=== PATIENT | female | born 1980 | race Caucasian/White ===

== ENCOUNTER → 2019-04-18 17:12 | Outpatient (CLI) | payer OTHER, SELFPAY ==
--- NOTE | ~2019-04-18 | MM_ITS ---
EXAMINATION: MM screening sheila BI w mar HISTORY: Screening mammogram TECHNIQUE: Craniocaudal and mediolateral oblique 3-D tomosynthesis images were obtained and synthetic 2-D images were generated. CAD analysis was submitted and interpreted. COMPARISON: No prior mammogram is available for comparison at this institution. BREAST PARENCHYMAL COMPOSITION: The breasts are extremely dense, which lowers the sensitivity of mamm ography. FINDINGS: There is no evidence of suspicious mass, calcification, or architectural distortion to sugg est malignancy in either breast. There has been no suspicious interval change. IMPRESSION: 1. No mammographic evidence of malignancy. 2. Recommend routine screening mammography in one year. BI-RADS Category 1: Negative Reviewed, dictated and finalized at location A. [facility]
== END ==
PROVIDERS: Visit Provider Advanced Practice Midwife
DX: Z12.31 Encounter for screening mammogram for malignant neoplasm of breast (principal)
CPT/HCPCS: 77063; 77067

== ENCOUNTER 2019-08-09 21:24 | Emergency (ER) | payer OTHER, MEDICAID, SELFPAY ==
--- NOTE | ~2019-08-09 | CT_ITS ---
EXAMINATION: CT abdomen pelvis wo con DATE: 08/09/2019 22:23 INDICATION: Right lower quadrant abdominal pain and fever TECHNIQUE: Computed tomography (CT) of the abdomen and pelvis was performed without intravenous contr ast. Automated exposure control and iterative reconstruction technique were employed. The dose-length product was 275.91 mGy-cm. COMPARISON: 03/18/2012 FINDINGS: Lung bases are clear. Visualized inferior heart appears normal. No pericardial or pleural effusion. L iver, gallbladder, spleen, pancreas, bilateral adrenal glands and left kidney are normal. 11 mm fluid attenuation cyst in the region of cortical scarring at the right kidney. No abnormal bowel wall thic kening or obstruction. The appendix is not visualized. No pericecal inflammatory change to suggest ac nish appendicitis. Bladder and anteverted uterus are normal. Small cysts/follicles at the bilateral ov arias. Small amount of likely physiologic free fluid in the cul-de-sac. No pathologically enlarged ab dominal or pelvic lymphadenopathy. L5 spondylolysis with bilateral pars interarticularis defects but no spondylolisthesis. IMPRESSION: 1. Small amount of likely physiologic free fluid in the pelvis. No other evident acute intra-abdomina l/pelvic process. 2. Chronic cortical scarring at the right kidney. Reviewed, dictated and finalized at location A. IMPRESSION: 1. Small amount of likely physiologic free fluid in the pelvis. No other eviden t acute intra-abdominal/pelvic process. 2. Chronic cortical scarring at the right kidney.
[2019-08-09 21:33] VITALS: BP 115/72; PULSE 114; RESP 20; TEMP 37.6; O2SAT 100
--- NOTE | 2019-08-09 21:53 | ED.FEVER ---
HPI - Fever General Chief Complaint: Fever Stated Complaint: fever, cramping, painful urination Time Seen by Provider: 08/09/19 21:40 Source: patient Mode of arrival: ambulatory Limitations: no limitations History of Present Illness HPI Narrative: Patient is a 39-year-old female with a history of recurrent urinary tract infections who presents for evaluation of dysuria, hematuria and fever. Patient reports low-grade fever and chills as well as myalgias earlier today. Patient states she believes she has a urinary tract infection as she has had some dysuria and frequency also has noticed some hematuria. No history of nephrolithiasis. Patient states her last urinary tract infection was several months ago. In the past, she typically gets these every 2 to 3 years. Patient also reports a mild headache without thunderclap sensation, vision changes. Patient reports nausea, but no episodes of emesis. She reports right-sided pelvic pain, and denies flank pain. Pain is dull, aching in nature without radiation to the back or upper abdomen. Related Data Allergies Allergy/AdvReac Type Severity Reaction Status Date / Time Penicillins Allergy Mild Rash Verified 08/09/19 22:05 Sulfa (Sulfonamide Allergy Mild Dry Mouth Verified 08/09/19 22:05 Antibiotics) amoxicillin Allergy Unknown Rash Verified 08/09/19 22:05 Review of Systems Review of Systems: Narrative: CONSTITUTIONAL: Reports fever and chills EYES: Denies visual changes, redness, or discharge. ENT: Denies rhinorrhea, congestion, sore throat, or otalgia. CARDIOVASCULAR: Denies chest pain, palpitations, or edema. RESPIRATORY: Denies cough or dyspnea. GASTROINTESTINAL: Reports right-sided abdominal pain, nausea GENITOURINARY: Reports dysuria and hematuria SKIN: Denies rash or itching. MUSCULOSKELETAL: Denies back pain, joint pain, or myalgia. NEUROLOGIC: Reports mild headache,denies numbness, or weakness. [facility] Past Medical History Medical History (Updated 08/09/19 @ 22:41 by Vianey Perry MD) Anxiety Migraine Urinary tract infection Surgical History Surgical History (Updated 08/09/19 @ 21:56 by Vianey Perry MD) History of gastric surgery Social History Social History (Updated 08/09/19 @ 21:56 by Vianey Perry MD) Smoking status: Never smoker Substance use: never Gender identity (if verbalized by the patient): Female Exam Narrative: Exam Narrative: GENERAL: Awake, alert, conversant HEAD: Normocephalic, atraumatic. EYES: PERRLA and EOMI. ENT: Nares clear, no rhinorrhea or epistaxis. Mucous membranes moist. NECK: Supple. CHEST: No respiratory distress, breathing even and non labored HEART: Regular rate, sinus rhythm ABDOMEN:Non distended, mild right lower quadrant tenderness, no rebound or guarding, no CVA tenderness EXTREMITIES: Normal range of motion. No edema. SKIN: Warm, dry, no rash. NEURO:No focal deficits. Alert and oriented x3 Course Vital Signs Vital signs: Vital Signs Temperature 37.6 C H 08/09/19 21:33 Pulse Rate 114 H 08/09/19 21:33 Respiratory Rate 08/09/19 21:33 Blood Pressure 115/72 08/09/19 21:33 Pulse Oximetry 100 08/09/19 21:33 Temperature 37.6 C H 08/09/19 21:33 Pulse Rate 114 H 08/09/19 21:33 Respiratory Rate 20 08/09/19 21:33 Blood Pressure 115/72 08/09/19 21:33 Pulse Oximetry 100 08/09/19 21:33 MDM - Fever MDM Narrative Medical decision making narrative: Patient presented to the emergency department for evaluation of fever, dysuria, hematuria right lower quadrant pain. At the time of assessment, ABCs are intact, vital signs are notable for fever and tachycardia. Given concern for sepsis, IV access obtained and blood cultures were drawn. Patient was given a 30 mL/kg fluid bolus and started on IV Rocephin as this is likely in origin. Patient does not have lactic acidosis. No leukocytosis. She does have a UTI. No evidence of appendicitis or acute intra-abdominal process suc
[2019-08-09] MEDS: ACETAMINOPHEN 500 MG TABLET 1000 MG PO (22:06)
[2019-08-09] MEDS: SODIUM CHLORIDE 0.9% IV 1,000 ML 999 ML IV CONT ×2 (22:06→22:45)
[2019-08-09] MEDS: MORPHINE SULFATE 4 MG/ML INJ 2 MG IV PUSH (22:07)
[2019-08-09] MEDS: ONDANSETRON INJ 4 MG/2 ML VIAL IV PUSH (22:07)
[2019-08-09 22:25] LABS: Basophils Absolute Auto 0.1 K/mm3 (0.0-0.1); Basophils Percent Auto 0.6 % (0.2-1.2); Eosinophils Absolute Auto 0.1 K/mm3 (0-0.3); Eosinophils Percent Auto 0.8 % (0-4.4); Hematocrit 40.2 % (37.0-47.0); Hemoglobin 13.5 g/dL (12.0-15.0); Immature Granulocyte Absolute 0.03 K/mm3 (0.00-0.031); Immature Granulocyte Percent A 0.3 % (0-0.5); Lymphocytes Absolute Auto 0.93 K/mm3 (0.9-3.2); Mean Corpuscular HGB Conc 33.6 g/dl (32-36); Mean Corpuscular Hemoglobin 30.8 pg (26-34); Mean Corpuscular Volume 91.6 fl (80-100); Mean Platelet Volume 11.2 fl (7.4-10.4); Monocytes Absolute Auto 0.8 K/mm3 (0.1-0.6); Monocytes Percent Auto 8.3 % (2.6-8.5); Neutrophils Absolute Auto 7.4 K/mm3 (1.3-6.7); Platelet Count Result 178 k/mm3 (150-375); Red Blood Count 4.39 M/mm3 (4.2-5.4); Red Cell Distribution Width 11.9 % (11.5-14.5); White Blood Count 9.3 K/mm3 (4.5-10.0)
[2019-08-09 22:30] LABS: Add Urine Microscopic? YES; Appearance Urine Cloudy (Clear); Bacteria Urine 1+ /hpf; Bilirubin Urine Negative (Negative); Blood Urine Negative (Negative); Color Urine Yellow (Yellow); Glucose Urine UA Negative (Negative); Ketones Urine Negative (Negative); Leukocyte Esterase Ur 2+ LEU/UL (Negative); Mucus Urine Rare /lpf; Nitrate Urine Negative (Negative); Protein Urine 1+ mg/dL (Negative); Specific Grav Ur 1.013 (1.001-1.035); Squamous Epithelial Cell Urine Rare /hpf (Few); Urobilinogen Urine Negative mg/dL (<2.0); WBC Urine 51-75 /hpf
[2019-08-09 22:40] LABS: Lactic Acid Reflex 0.7 mmol/L (0.7-2.1)
[2019-08-09 22:55] LABS: Blood Urea Nitrogen 11 mg/dL (7-17); Calcium 8.9 mg/dL (8.4-10.2); Carbon Dioxide 32 mmol/L (22-30); Chloride 99 mmol/L (98-107); Estimated CRCL calculation 65 ml/min; Estimated Glomerular Filt Rate > 60; Glucose 107 mg/dL (65-105); Potassium 3.8 mmol/L (3.4-5.0); Sodium 136 mmol/L (137-145)
[2019-08-09 23:40] VITALS: BP 98/53; PULSE 104; RESP 15; O2SAT 96
[2019-08-09 23:41] VITALS: TEMP 37.4
== END 2019-08-09 23:40 | disposition home or self-care (01) ==
PROVIDERS: Emergency Medicine Emergency Medical Services; Emergency Provider Emergency Medicine
DX: N12 Tubulo-interstitial nephritis, not specified as acute or chronic (principal)
CPT/HCPCS: 36415; 74176; 80048; 81001; 81025; 83605; 85025; 87040; 87077; 87086; 87088; 87186; 96361; 96365; 96375; 99284; A9270; J0696; J2270; J2405; J7030

== ENCOUNTER 2019-11-27 01:49 | Emergency (ER) | payer OTHER, MEDICAID, SELFPAY ==
[2019-11-27 01:53] VITALS: BP 114/60; PULSE 74; RESP 18; TEMP 36.2; O2SAT 100
--- NOTE | 2019-11-27 02:27 | ECG_ITS ---
Measurements Intervals [place] Rate: 81 P: 42 NC: 118 QRS: 48 QRSD: 89 T: 40 QT: 383 QTc: 445 Interpretive Statements SINUS RHYTHM WITH SHORT NC INTERVAL INCOMPLETE RIGHT BUNDLE BRANCH BLOCK BORDERLINE ECG Electronically Signed On 11-27-2019 8:09:02 CDT by Garrett Pool D.O.
[2019-11-27 03:07] VITALS: BP 95/64; PULSE 85; RESP 18; O2SAT 99
[2019-11-27] MEDS: ALPRAZolam (*CRX) 0.5 MG TABLET PO (03:07)
--- NOTE | 2019-11-27 03:15 | ED.CHESTPAIN ---
HPI - Chest Pain General Chief Complaint: Chest Pain Stated Complaint: sick to stomach . Time Seen by Provider: 11/27/19 02:10 History of Present Illness HPI narrative: Patient is a 39-year-old female who presents the ER with anxiety. Patient reports she gets anxiety attack about once a week. Tonight it woke her up from sleep and she had central chest pressure and tightness. She reports that lasted longer than typical and she cannot breathe her way through it. She still feeling slightly anxious and like her heart is racing. No radiation of the chest discomfort. No nausea/vomiting/diaphoresis. Patient reports her anxiety is untreated. No new stressors. Related Data Allergies Allergy/AdvReac Type Severity Reaction Status Date / Time Penicillins Allergy Mild Rash Verified 08/14/19 12:58 Sulfa (Sulfonamide Allergy Mild Dry Mouth Verified 08/14/19 12:58 Antibiotics) amoxicillin Allergy Unknown Rash Verified 08/14/19 12:58 Review of Systems Review of Systems: All systems reviewed & are unremarkable except as noted in HPI and below Constitutional: Constitutional: Denies chills, Denies fever(s) and Denies weakness ENT: Denies nasal congestion and Denies sore throat Cardiovascular: Cardiovascular: Reports chest pain, Reports rapid heart rate and Denies radiating jaw, neck or arm pain Respiratory: Respiratory: Denies cough, Reports dyspnea and Denies wheezing Psychiatric: Psychiatric: Reports anxiety and Denies depression PMFSH Past Medical History Medical History (Updated 11/27/19 @ 03:39 by Alvino Quijano MD) Anxiety Migraine Urinary tract infection Surgical History Surgical History (System 08/14/19 @ 12:58 by Sierra Justice) History of gastric surgery Social History Social History (System 08/14/19 @ 12:58 by Sierra Justice) Smoking status: Never smoker Substance use: never Gender identity (if verbalized by the patient): Female Exam Narrative: Exam Narrative: GENERAL: Well-appearing, well-nourished, and in no acute distress. HEAD: Normocephalic, atraumatic. NECK: Supple. CHEST: Clear to auscultation. No respiratory distress. HEART: Regular rate and rhythm. Normal peripheral pulses. ABDOMEN: Soft, nontender, nondistended. EXTREMITIES: Normal range of motion. No edema. NEURO: Alert and oriented x3. PSYCH: Normal mood and affect. Course Course Emergency Course: Sx resolved with xanax. D/c. Vital Signs Vital signs: Vital Signs Temperature 97.2 F L 11/27/19 01:53 Pulse Rate 74 11/27/19 01:53 Respiratory Rate 18 11/27/19 01:53 Blood Pressure 114/60 11/27/19 01:53 Pulse Oximetry 100 11/27/19 01:53 Temperature 97.2 F L 11/27/19 01:53 Pulse Rate 85 11/27/19 03:07 Respiratory Rate 18 11/27/19 03:07 Blood Pressure 95/64 L 11/27/19 03:07 Pulse Oximetry 99 11/27/19 03:07 MDM - Chest Pain Imaging Data My impression: Chest x-ray: No acute cardiopulmonary process. ECG Data EKG #1: ECG completion date: 11/27/19 ECG completion time: 01:59 EKG Interpretation: normal rate (81), sinus rhythm, no ectopy, no ST changes, normal QRS, normal QT and NL axis Discharge Plan Discharge Clinical Impression: Panic attack Patient Disposition: Home, Self-Care Condition: Stable Instructions: Anxiety (ED) Additional Instructions: Return the ER if you have chest pain or shortness of breath, cannot keep down food or water, you lose consciousness, you have additional concerns. Prescriptions: No Action ondansetron HCl [Zofran] 4 mg tablet 4 mg PO Q8H Qty: 14 RF: 0 oxycodone-acetaminophen 5-325 mg tablet 1 tablet PO Q6H PRN (Reason: pain) Qty: 9 RF: 0 cephalexin [Keflex] 500 mg capsule 500 mg PO Q8H 10 Days Qty: 30 RF: 0 acetaminophen 500 mg capsule 500 mg PO Q6H PRN (Reason: fever or pain) Qty: 30 RF: 0 Follow-up/Referrals: Rodrigo,MD Derek [Primary Care Provider] - 1 Week
== END 2019-11-27 03:53 | disposition home or self-care (01) ==
PROVIDERS: Emergency Provider Emergency Medicine; PCP Family Medicine
DX: F41.0 Panic disorder [episodic paroxysmal anxiety] (principal)
CPT/HCPCS: 93005; 99283; A9270

== ENCOUNTER 2020-11-10 21:57 | Emergency (ER) | payer OTHER, SELFPAY ==
--- NOTE | ~2020-11-10 | XR_ITS ---
EXAMINATION: XR chest 1V portable DATE: 11/10/2020 22:25 INDICATION: Stroke. Left hemiparesis. Blurry vision. TECHNIQUE: AP view of the chest was obtained. COMPARISON: Chest radiograph dated 05/24/2012 FINDINGS: The lungs remain clear with no focal airspace opacities, pulmonary edema, pleural effusion or pneumot horax. The cardiomediastinal silhouette is normal. Visualized bones and soft tissues are unremarkable . IMPRESSION: 1. Normal chest radiograph. Reviewed, dictated and finalized at location A. IMPRESSION: 1. Normal chest radiograph.
--- NOTE | ~2020-11-10 | CT_ITS ---
EXAMINATION: CTA BRAIN/CAROTID DATE: 11/10/2020 23:43 INDICATION: Monocular visual disturbance with blurry vision of the left ICA TECHNIQUE: Computed tomographic angiography (CTA) of the head and neck was performed with 100 mL Omni paque-350 intravenous contrast. Multiplanar reconstructions and maximum intensity projection 3D-recon structions of the carotid arteries and of the intracranial arteries were created by the technologist on a separate workstation. Automated exposure control and iterative reconstruction technique were emp loyed.The dose-length product was 976.56 mGy-cm. COMPARISON: Head CT dated 11/10/2020 FINDINGS: Carotid arteries: Normal caliber aortic arch with no dissection. There is moderate motion artifact which mildly limits evaluation. No definitive atherosclerotic plaque identified along the common or cervical portion of t he internal carotid arteries. There is 0% stenosis of the right carotid bulb relative to normal dista l artery lumen diameter (NASCET criteria). There is 0% stenosis of the left carotid bulb relative to normal distal artery lumen diameter. Visualized cervical soft tissues and apices of the lungs are unr emarkable. Intracranial arteries There is no hemodynamically significant stenosis in the vertebral, basilar and internal carotid arter ies. Vertebral arteries are codominant. There are no aneurysms identified. Both A1 and P1 segments a re patent. There also appears to be a patent anterior communicating artery and patent small right and diminutive left posterior communicating arteries. Cerebral arterial arborization appears symmetric. No abnormally enhancing brain lesions identified. IMPRESSION: 1. 0% stenosis of the left and right carotid bulbs relative to normal distal artery lumen diameter (N ASCET criteria). 2. Normal cerebral angiogram. Reviewed, dictated and finalized at location A. IMPRESSION: 1. 0% stenosis of the left and right carotid bulbs relative to normal distal ar maxim lumen diameter (NASCET criteria). 2. Normal cerebral angiogram.
--- NOTE | ~2020-11-10 | CT_ITS ---
EXAMINATION: CT brain wo con DATE: 11/10/2020 22:19 INDICATION: Left hemiparesis and blurry vision from the left thigh. TECHNIQUE: Computed tomography (CT) of the head was performed without intravenous contrast. Sagittal and coronal reconstructions were performed. The mA was adjusted according to patient size. Iterative reconstruction technique was employed. The dose-length product was 832.33 mGy-cm. COMPARISON: None FINDINGS: No acute intracranial hemorrhage, acute infarction or abnormal extra axial fluid collection. Ventricl es are normal and symmetric. No mass/mass effect. The orbits, paranasal sinuses and mastoid air cells are normal. IMPRESSION: 1. Normal head CT. Reviewed, dictated and finalized at location A. IMPRESSION: 1. Normal head CT.
[2020-11-10 22:08] VITALS: BP 125/83; PULSE 92; RESP 20; O2SAT 100
--- NOTE | 2020-11-10 22:08 | ECG_ITS ---
Measurements Intervals [place] Rate: 77 P: 46 [place]: 122 QRS: 31 QRSD: 90 T: 32 QT: 396 QTc: 449 Interpretive Statements SINUS RHYTHM INCOMPLETE RIGHT BUNDLE BRANCH BLOCK BASELINE ARTIFACT- III, AVL BORDERLINE ECG Electronically Signed On 11-11-2020 6:34:19 CDT by Garrett Pool D.O.
--- NOTE | 2020-11-10 22:13 | PC.NURSE ---
Pt to CT scan via stretcher, pt on tele monitor.
[2020-11-10 22:33] LABS: Anion Gap 10 mmol/L (8-16); Blood Urea Nitrogen 11 mg/dL (7-17); Calcium 9.5 mg/dL (8.4-10.2); Carbon Dioxide 30 mmol/L (22-30); Chloride 101 mmol/L (98-107); Estimated CRCL calculation 67 ml/min; Estimated Glomerular Filt Rate > 60; Glucose 121 mg/dL (65-110); Potassium 3.6 mmol/L (3.4-5.0); Sodium 141 mmol/L (137-145)
[2020-11-10 22:36] VITALS: BP 114/73; PULSE 81; RESP 12; O2SAT 100
[2020-11-10 22:38] LABS: Prothrombin Time 13.4 Seconds (11.1-14.7)
[2020-11-10 22:43] LABS: Basophils Absolute Auto 0.1 K/mm3 (0.0-0.1); Basophils Percent Auto 0.8 % (0.2-1.2); Eosinophils Absolute Auto 0.2 K/mm3 (0-0.3); Eosinophils Percent Auto 1.9 % (0-4.4); Hematocrit 44.3 % (37.0-47.0); Immature Granulocyte Absolute 0.03 K/mm3 (0.00-0.031); Immature Granulocyte Percent A 0.3 % (0-0.5); Lymphocytes Absolute Auto 2.46 K/mm3 (0.9-3.2); Lymphocytes Percent Auto 28.5 % (18.3-44.2); Mean Corpuscular HGB Conc 33.9 g/dl (32-36); Mean Corpuscular Hemoglobin 31.6 pg (26-34); Mean Corpuscular Volume 93.5 fl (80-100); Mean Platelet Volume 10.9 fl (7.4-10.4); Monocytes Absolute Auto 0.7 K/mm3 (0.1-0.6); Monocytes Percent Auto 8.4 % (2.6-8.5); Neutrophils Absolute Auto 5.2 K/mm3 (1.3-6.7); Neutrophils Percent Auto 60.1 % (45.5-73.1); Platelet Count Result 219 k/mm3 (150-375); Red Blood Count 4.74 M/mm3 (4.2-5.4); Red Cell Distribution Width 12.1 % (11.5-14.5); White Blood Count 8.6 K/mm3 (4.5-10.0)
[2020-11-10 22:44] LABS: Troponin I < 0.012 ng/mL (0.000-0.034)
--- NOTE | 2020-11-10 22:45 | ED.NEUROSD ---
HPI - Neuro Symptoms/Deficit General Chief Complaint: Suspected CVA Stated Complaint: L sided numbness Time Seen by Provider: 11/10/20 22:19 Source: patient Mode of arrival: ambulatory Limitations: no limitations History of Present Illness HPI Narrative: Patient is a 40-year-old female complaining of left facial and left upper extremity numbness accompanied by blurred vision that started approximately 1 hour prior to arrival and now resolved. Patient denies any speech or visual disturbance, focal weakness, or unsteady gait. Patient walked to her room here in the emergency room without difficulty, steady gait. Related Data Allergies Allergy/AdvReac Type Severity Reaction Status Date / Time Penicillins Allergy Mild Rash Verified 08/14/19 12:58 Sulfa (Sulfonamide Allergy Mild Dry Mouth Verified 08/14/19 12:58 Antibiotics) amoxicillin Allergy Unknown Rash Verified 08/14/19 12:58 Review of Systems Review of Systems: All systems reviewed & are unremarkable except as noted in HPI and below Constitutional: Constitutional: Denies body ache(s), Denies chills, Denies excessive sweating, Denies fatigue, Denies fever(s), Denies headache(s), Denies lethargy, Denies malaise, Denies weakness and Denies weight loss Eyes: Eyes: Denies loss of vision ENT: Denies dizziness, Denies ear discharge, Denies headache(s), Denies lip swelling, Denies epistaxis, Denies nasal congestion, Denies neck pain, Denies throat swelling and Denies tongue swelling Cardiovascular: Cardiovascular: Denies chest pain, Denies chest pain at rest, Denies chest pain with activity, Denies diaphoresis, Denies rapid heart rate, Denies edema, Denies irregular heart rhythm, Denies lightheadedness, Denies palpitations, Denies dyspnea and Denies dyspnea on exertion Respiratory: Respiratory: Denies chest congestion, Denies cough, Denies hemoptysis, Denies dyspnea and Denies dyspnea on exertion Gastrointestinal: Gastrointestinal: Denies abdominal pain, Denies melena, Denies hematochezia, Denies diarrhea, Denies nausea, Denies vomiting and Denies hematemesis Musculoskeletal: Musculoskeletal: Denies abnormal gait, Denies deformity, Denies joint swelling, Denies limited range of motion, Denies neck pain and Denies numbness Neurologic: Denies Abnormal speech present, Denies abnormal gait, Denies confusion, Denies dizziness, Denies headache(s), Denies focal weakness, Denies loss of vision, Denies numbness, Denies Other visual disturbances and Denies weakness Psychiatric: Psychiatric: Denies confusion, Denies depression, Denies auditory hallucinations, Denies homicidal ideation and Denies suicidal ideation Endocrine: Endocrine: Denies cold intolerance, Denies excessive sweating, Denies fatigue, Denies heat intolerance and Denies palpitations Hematologic/Lymphatic: Hematologic/Lymphatic: Denies easy bleeding and Denies easy bruising Allergic/Immunologic: Allergic/Immunologic: Denies lip swelling, Denies throat swelling and Denies tongue swelling PMFSH Past Medical History Medical History Anxiety Migraine Urinary tract infection Surgical History Surgical History History of gastric surgery Social History Social History Smoking status: Never smoker Substance use: never Gender identity (if verbalized by the patient): Female Exam Const: General: cooperative, healthy appearing, comfortable, no acute distress, well developed, alert and awake; No confusion Orientation/consciousness: oriented to person, oriented to place, oriented to time, patient oriented x3 and No confusion Limitations: no limitations HENMT: Head: normal to inspection, normocephalic and atraumatic Ears: hearing grossly normal bilaterally, TM normal on the right and TM normal on the left General nose exam: Normal external nose present, Normal nare
[2020-11-10 23:00] VITALS: BP 114/72; PULSE 88; RESP 14; O2SAT 100
[2020-11-11] VITALS: BP 100/75; PULSE 80; RESP 14; O2SAT 97
[2020-11-11 01:00] VITALS: BP 99/70; PULSE 80; RESP 14; O2SAT 98
[2020-11-11 01:20] VITALS: BP 100/63; PULSE 103; RESP 25; O2SAT 97
== END 2020-11-11 01:20 | disposition home or self-care (01) ==
PROVIDERS: Emergency Provider Emergency Medicine; PCP Family Medicine
DX: R20.0 Anesthesia of skin (principal); H53.9 Unspecified visual disturbance; Z87.440 Personal history of urinary (tract) infections
CPT/HCPCS: 36415; 70450; 70496; 70498; 71045; 80048; 81025; 84484; 85025; 85610; 85730; 93005; 99284; Q9967

== ENCOUNTER 2021-03-11 10:08 | Emergency (ER) | payer OTHER, SELFPAY ==
[2021-03-11 10:40] VITALS: BP 98/67; PULSE 84; RESP 18; TEMP 36.9; O2SAT 98
--- NOTE | 2021-03-11 11:28 | ED.URI ---
HPI - URI/Sore Throat General Chief Complaint: Upper Respiratory Infection Stated Complaint: cold/flu Source: patient and RN notes reviewed Mode of arrival: ambulatory History of Present Illness HPI Narrative: This is a 40-year-old female that presented to urgent care with complaints of a sore throat, chills, body aches , dry cough and chest discomfort due to coughing with fatigue that started yesterday. According to patient she took DayQuil at home with little relief, she has been exposed to COVID. Patient works in the medical field. Patient notes that she has had issues with her allergies in the past and will in the near future follow-up with the ENT. the patient denies SOB, CP, palpitation, extremity numbness, lightheadedness, dizziness, constipation, diarrhea, or fever. Patient covid positive Influenza negative Related Data Home Medications Medication Instructions Recorded Confirmed norethindrone ac-eth estradiol 1 tablet DAILY 03/11/21 03/11/21 Allergies Allergy/AdvReac Type Severity Reaction Status Date / Time Penicillins Allergy Mild Rash Verified 08/14/19 12:58 Sulfa (Sulfonamide Allergy Mild Dry Mouth Verified 08/14/19 12:58 Antibiotics) amoxicillin Allergy Unknown Rash Verified 08/14/19 12:58 Review of Systems Review of Systems: A 14 organ system Review of Systems was performed and pertinent positives included in the HPI, otherwise remaining ROS is negative. [facility] Past Medical History Medical History Anxiety Migraine Urinary tract infection Surgical History Surgical History History of gastric surgery Social History Social History Smoking status: Never smoker Substance use: never Gender identity (if verbalized by the patient): Female Exam Narrative: GENERAL: This is a well-nourished, well-developed patient, in no apparent distress. HEAD: normocephalic, atraumatic. EYES: PERRL. Sclera clear/white. Vision is grossly intact. EARS: External ears normal, auditory canals clear and without drainage, TMs normal without perforation. Hearing grossly intact. NOSE: External nose normal with no obvious nasal discharge, nares without redness, no rhinorrhea. THROAT: Mucous membranes moist, posterior pharynx clear with erythema NECK: Neck supple, non-tender without lymphadenopathy, masses or thyromegaly. CARDIOVASCULAR: Regular rate and rhythm without murmurs, gallops, or rubs. RESPIRATORY: Clear to auscultation. Breath sounds equal bilaterally. No wheezes, rales, or rhonchi. GASTROINTESTINAL: Abdomen soft, non-tender, nondistended. Bowel sounds are active. No hepato-splenomegaly, or palpable masses. No guarding. SKIN: warm, intact with no suspicious lesions or rash, good texture and turgor. NEURO: awake, alert, and oriented to person, place and time. There were no obvious focal neurologic abnormalities. Steady gait EXTREMITIES: Normal range of motion. No edema. No calf tenderness. Negative Homans sign bilaterally. BACK: Nontender without deformity or crepitance. No flank tenderness. Course Course Emergency Course: Patient will discharge home with albuterol, Tessalon Perles, guaifenesin, Claritin and Flonase Level of Care: Express Care Visit Vital Signs Vital signs: Vital Signs Temperature 98.5 F 03/11/21 10:40 Pulse Rate 84 03/11/21 10:40 Respiratory Rate 18 03/11/21 10:40 Blood Pressure 98/67 L 03/11/21 10:40 Pulse Oximetry 98 03/11/21 10:40 Temperature 98.5 F 03/11/21 10:40 Pulse Rate 84 03/11/21 10:40 Respiratory Rate 18 03/11/21 10:40 Blood Pressure 98/67 L 03/11/21 10:40 Pulse Oximetry 98 03/11/21 10:40 MDM - URI/Sore Throat Differential Diagnosis Differential diagnosis: Likely upper respiratory infection, sinusitis, viral infection, influenza and other (covid) Lab Data Lab result
== END 2021-03-11 11:48 | disposition home or self-care (01) ==
PROVIDERS: Emergency Provider Nurse Practitioner
DX: U07.1 COVID-19 (principal)
CPT/HCPCS: 87081; 87426; 87804; 87880; 99213; C9803; G0463

== ENCOUNTER 2021-05-25 14:28 | Outpatient (CLI) | payer OTHER, SELFPAY ==
--- NOTE | ~2021-05-25 | MM_ITS ---
EXAMINATION: MM screening sheila BI w mar HISTORY: Screening TECHNIQUE: Craniocaudal and mediolateral oblique 3-D tomosynthesis images were obtained and synthetic 2-D images were generated. CAD analysis was submitted and interpreted. COMPARISON: 04/18/2019 BREAST PARENCHYMAL COMPOSITION: The breasts are extremely dense, which lowers the sensitivity of mamm ography FINDINGS: There is no evidence of suspicious mass, calcification, or architectural distortion to sugg est malignancy in either breast. There has been no suspicious interval change. IMPRESSION: 1. No mammographic evidence of malignancy. 2. Recommend routine screening mammography in one year. BI-RADS Category 1: Negative Reviewed, dictated and finalized at location A.
== END 2021-05-25 14:29 | disposition home or self-care (01) ==
LOC: ANHIMG 14:31
PROVIDERS: PCP Family Medicine; Visit Provider Obstetrics & Gynecology
DX: Z12.31 Encounter for screening mammogram for malignant neoplasm of breast (principal)
CPT/HCPCS: 77063; 77067

== ENCOUNTER 2022-05-31 07:24 | Outpatient (CLI) | payer BC, MEDICAID, SELFPAY ==
--- NOTE | ~2022-05-31 | MM_ITS ---
EXAMINATION: MM screening sheila BI w mar HISTORY: Screening mammogram TECHNIQUE: Craniocaudal and mediolateral oblique 3-D tomosynthesis images were obtained and synthetic 2-D images were generated. Bilateral rotated lateral CC views. ....CAD analysis was submitted and in terpreted. COMPARISON: May 25, 2021, April 18, 2019 bilateral screening mammogram examinations BREAST PARENCHYMAL COMPOSITION: The breasts are extremely dense, which lowers the sensitivity of mamm ography. FINDINGS: There is no evidence of suspicious mass, calcification, or architectural distortion to sugg est malignancy in either breast. There has been no suspicious interval change. IMPRESSION: 1. No mammographic evidence of malignancy. 2. Recommend routine screening mammography in one year. Ultrasound examination may be of additional b enefit given the very dense fibroglandular stroma. BI-RADS Category 1: Negative Reviewed, dictated and finalized at location A. IMPRESSION: 1. No mammographic evidence of malignancy. 2. Recommend routine screening mammography in one year. Ultrasound examination may be of additional benefit given the very dense fibroglandular stroma. BI-RADS Category 1: Negative
== END 2022-05-31 07:25 | disposition home or self-care (01) ==
LOC: ANHIMG 07:28
PROVIDERS: PCP Family Medicine; Visit Provider Obstetrics & Gynecology
DX: Z12.31 Encounter for screening mammogram for malignant neoplasm of breast (principal)
CPT/HCPCS: 77063; 77067

== ENCOUNTER 2023-04-18 12:02 | Emergency (ER) | payer OTHER, SELFPAY ==
[2023-04-18 12:23] VITALS: BP 104/67; PULSE 93; RESP 18; TEMP 36.7; O2SAT 100
--- NOTE | 2023-04-18 12:48 | ED.URI ---
HPI - URI/Sore Throat General Chief Complaint: Upper Respiratory Infection Stated Complaint: congestion,sorethroat Time Seen by Provider: 04/18/23 12:55 Source: patient, RN notes reviewed and old records reviewed Mode of arrival: ambulatory Limitations: no limitations History of Present Illness HPI Narrative: 42-year-old female presents to the [facility] with complaints of a sore throat, runny nose and congestion for 4 days. Onset (ago): day(s) Related Data Home Medications Medication Instructions Recorded Confirmed trazodone 100 mg tablet mg 04/18/23 Allergies Allergy/AdvReac Type Severity Reaction Status Date / Time Penicillins Allergy Mild Rash Verified 04/18/23 12:45 Sulfa (Sulfonamide Allergy Mild Dry Mouth Verified 04/18/23 12:45 Antibiotics) amoxicillin Allergy Unknown Rash Verified 08/14/19 12:58 Review of Systems Review of Systems: All systems reviewed & are unremarkable except as noted in HPI and below Constitutional: Constitutional: Reports no additional constitutional complaints Eyes: Eyes: Reports no additional eye complaints ENT: Reports system reviewed and no additional complaints, except as documented, Reports nasal congestion, Reports nasal discharge and Reports sore throat Cardiovascular: Cardiovascular: Reports no additional cardiovascular complaints, Denies chest pain and Denies dyspnea Respiratory: Respiratory: Reports no additional respiratory complaints, Denies chest congestion, Denies cough and Denies dyspnea Gastrointestinal: Gastrointestinal: Reports no additional gastrointestinal complaints, Denies abdominal pain, Denies nausea and Denies vomiting Musculoskeletal: Musculoskeletal: Reports no additional musculoskeletal complaints Integumentary/Breasts: Skin/Breast: Reports system reviewed and no additional complaints, except as docu Neurologic: Reports system reviewed and no additional complaints, except as documented Psychiatric: Psychiatric: Reports no additional psychiatric complaints Allergic/Immunologic: Allergic/Immunologic: Reports no additional allergic/immunologic complaints [facility] Past Medical History Medical History Anxiety Migraine Urinary tract infection Surgical History Surgical History History of gastric surgery Social History Social History Smoking status: Never smoker Substance use: never Gender identity (if verbalized by the patient): Female Comments At the time of my signature, I reviewed and agree with the nursing past medical, surgical, social, and family history. There is no relevant family history pertinent to the patient complaint. Exam Const: General: cooperative, healthy appearing, comfortable, no acute distress, well developed, alert and well nourished Nutritional Appearance: well nourished Orientation/consciousness: patient oriented x3 Limitations: no limitations HENMT: Head: normal to inspection Ears: hearing grossly normal bilaterally, external ears normal, TM's normal bilaterally, EAC's normal, mastoids normal and no periauricular adenopathy Face/Nose/Sinus: Normal external nose present, Normal nares present, Normal nasal mucous membranes and turbinates present, Nasal discharge present clear bilateral, normal facial exam and face symmetric Face and sinus: normal facial exam and face symmetric Mouth: Yes Normal oral and palatal mucosa present, Yes lip normal and Yes moist mucous membranes Throat: posterior oropharynx normal, uvula midline, postnasal drainage and no uvular edema Eyes: General: appearance normal, both eyes and all related structures Alignment and Position: alignment normal Periorbital: periorbital findings normal Pupils: Equal, round and reactive pupils present EOM: EOMs intact bilaterally Neck: Neck: normal visual inspection, full ROM, no lymphadenop
== END 2023-04-18 13:11 | disposition home or self-care (01) ==
PROVIDERS: Emergency Provider Nurse Practitioner; PCP Family Medicine
DX: J32.9 Chronic sinusitis, unspecified (principal); Z20.822 Contact with and (suspected) exposure to COVID-19
CPT/HCPCS: 87081; 87426; 87804; 87880; 99213; G0463